=== PATIENT | male | born 1985 | race Two or more races ===

== ENCOUNTER 2022-11-23 01:50 | Emergency (ER) | payer BC ==
[2022-11-23] MEDS ORDERED: Metoclopramide HCl 10 MG/2 ML VIAL ONE (02:24)
[2022-11-23] MEDS ORDERED: Ketorolac Tromethamine 30 MG/ML VIAL ONE (02:24)
[2022-11-23] MEDS ORDERED: Acetaminophen 500 MG TAB ONE (02:24)
[2022-11-23] MEDS ORDERED: diphenhydrAMINE 50 MG/ML VIAL ONE (02:24)
== END 2022-11-23 03:20 | disposition home or self-care (01) ==
LOC: ERS 01:50
DX: G43.909 Migraine, unspecified, not intractable, without status migrainosus (principal)
CPT/HCPCS: 99284; J1200; J1885; J2765